=== PATIENT | female | born 1995 | race Caucasian/White ===

== ENCOUNTER → 2017-11-20 17:18 | Outpatient (CLI) | payer MEDICAID, SELFPAY ==
--- NOTE | 2017-11-20 | BRBX_PTH ---
PATIENT: SHANITA ARBOLEDA LOC: [facility] U#:[id number] AGE/SX: 29/F ROOM: RE11/20/[address]: Dr. Angie Hurley MD : 1995 BED: DIS: SPEC #: [id number] RECD: 11/21/17 07:54 STATUS: DEIRDRE GIORDANO #: [id number] ALIZE: 11/20/17 00:[address]: Angie Hurley DEPT: SURGICAL PATHOLOGY RECD BY: Jorje Durbin ENTERED: 11/21/17 07:55 SP TYPE: BREAST BX OTHR DR: Dr. Anju Mccoy MD Tissues: Left breast, NOS Procedures: Surgery Specimen Level IV HEADER OPERATION: Ultrasound-guided left breast biopsy mammotome PRE-OP DIAGNOSIS: Palpable mass TISSUE SUBMITTED: Ultrasound-guided left breast biopsy ISCHEMIC TIME: <1 minute FIXATION TIME: 24 hours MICROSCOPIC DIAGNOSIS Left breast mass, ultrasound-guided core biopsy: Consistent with benign phyllodes tumor/fibroadenoma. AM:nany 11/22/17 MICROSCOPIC DESCRIPTION Slides are reviewed. GROSS DESCRIPTION Received is one container labeled with the patient's name and not further designated. The specimen consists of multiple irregular and elongated fragments of light rashid-white soft tissue that in aggregate measure 2.6 x 1.2 x 0.1 cm. The specimen is totally submitted in one cassette. / AM:nany 11/21/17 TC:5 CPT: 73897
== END ==
PROVIDERS: Family Provider Pediatrics; PCP Pediatrics; Visit Provider Surgery
DX: N63.0 Unspecified lump in unspecified breast (principal)
CPT/HCPCS: 88305